=== PATIENT | female | born 1945 | race Caucasian/White ===

== ENCOUNTER → 2016-10-19 | Outpatient (CLI) | payer OTHER, MEDICAID ==
[2012-10-05 11:26] VITALS: BP 132/79
== END ==
LOC: LAB 09:23
PROVIDERS: ATTEND Internal Medicine Gastroenterology
DX: K64.0 First degree hemorrhoids (principal)
CPT/HCPCS: 82270

== ENCOUNTER 2017-01-09 20:50 | Emergency (ER) | payer OTHER, MEDICAID ==
[2017-01-09 20:57] VITALS: BP 182/89
--- NOTE | 2017-01-09 21:59 | RAD ---
Left foot three views Indication: Left foot pain and trauma. Lateral foot pain. Findings: There is fracture the base of the 5th toe metatarsal, minimally displaced. Remaining bones the foot appear intact, with great toe MTP degenerative change and bunion deformity. 2nd toe MTP DJD noted with flattening of the 2nd toe metatarsal head. History of osteonecrosis here may be possible. Prominent height 3 navicular bone noted. Impression: Acute fracture of the 5th metatarsal base. Reported By:
--- NOTE | 2017-01-09 22:00 | DR.GENAD ---
HPI - PCP Primary Care Physician: AUGUSTINA - HPI Comment HPI Comment: HISTORY BELOW. - Complaint/Symptoms Chief Complaint Doctors Comments: FELL AT HOME AND INJURED HER FOOT. PAIN RIGHT ANKLE, EVEN SAW BRUISES ON LATERAL FOOT. REDNESS LEFT LEG IS INCREASING. CURRENTLY ON ANTIBIOTIC. Chief Complaint:: FELL AT HOME HURT FOOT - Nurses notes reviewed Nurses Notes Review: Yes - Source History Provided: Patient - Mode of Arrival Mode of Arrival: Ambulatory - Timing Onset of Chief Complaint: 01/09/17 Came on: Gradually - Duration Duration: Constant Duration: Days PMH - PMH Past Medical History: Yes Past Medical History: Hypertension Past Surgical History: Yes Surgical History: Appendectomy, Hysterectomy - Family History History of Family Medical Conditions: Yes Family Medical History: Hypertension - Social History Does patient currently use any type of tobacco product: No Have you used tobacco products in the last 12 months: No Type of Tobacco Use: None Does any household member use tobacco: No Alcohol Use: None Do you use any recreational Drugs:: No Lives With: Alone Lives Where: Home - infectious screening In the last 2 months have you had wt loss of >10#?: NO Have you had fever, night sweats or hemotysis?: No Have you traveled outside the country in the last 6 months?: No Isolation: Standard ROS - Review of Systems Constitutional: Weakness, Fatigue. negative: Diaphoresis, Fever Eyes: No Symptoms Reported. negative: Eye Pain, Discharge ENTM: No Symptoms Reported. negative: Ear Pain, Nose Discharge, Nose Congestion , Throat Pain Respiratoy: Non-Productive Cough, Short of Breath. negative: Productive Cough, Wheezing, Hemoptysis Cardiovascular: Edema Gastrointestinal/Abdominal: No Symptoms Reported Genitourinary: No Symptoms Reported. negative: Dysuria, Frequency, Hematuria Neurological: No Symptoms Reported Musculoskeletal: Left, Ankle, Foot Integumentary: Change in Color, Bruises Hematologic/Lymphatic: Easy Bleeding, Easy Bruising Endocrine: No Symptoms Reported All Other Systems: Reviewed and Negative PE - Vital Signs Vitals: Temperature 98.6 F Pulse Rate 98 Respiratory Rate 17 Blood Pressure 182/89 O2 Sat by Pulse Oximetry 84 - General Limitations: No Limitations General Appearance: Alert - Head Head Exam: Normal Inspection - Eyes Eye exam: Normal Appearance - ENT ENT Exam: Normal External Ear Exam External Ear Exam: Normal External Inspection TM/Canal Exam: Bilateral Normal Nose Exam: Normal Nose Exam Mouth Exam: Normal Inspection Throat Exam: Normal Inspection - Neck Neck Exam: Trachea Midline - Chest Chest Inspection: Symmetric Chest Wall Rise - Respiratory Respiratory Exam: Respiratory Distress Respiratory Exam: Bilateral Clear to Auscultation, Bilateral Wheezing - Cardiovascular Cardiovascular Exam: Regular Rate, Normal Rhythm, Normal Heart Sounds - Abdominal Exam Abdominal Exam: Normal Bowel Sounds, Soft. negative: Tenderness - Extremities Extremities Exam: Tenderness (LEFT LEG, ANKLE AND FOOT WITH REDNESS) - Back Back Exam: Normal Inspection - Neurologic Neurological Exam: Alert, Oriented X3 - Psychiatric Psychiatric Exam: Normal Affect, Normal Mood - Skin Skin Exam: Erythema MDM - Differential Diagnosis Differential Diagnosis: CELLULITIS, FRACTURE, SPRAIN Course - Treatment Treatment: OCL SPLINT PLACE IN ED. - Education/Counseling Education/Counseling: Patient, Education Educated On: Treatment, Diagnosis, Needs for Follow Up ROR - Labs Reviewed Laboratory Results Reviewed?: Yes - XRAY XRAY Interpreted by: Radiologist XRAY Findings: REPORT DISCUSS WITH PATIENT. - Diagnosis Discharge Problem: Fracture of ankle, right, closed Qualifiers: Encounter type: initial encounter Qualified Code(s): S82.891A - Other fracture of right lower leg, initial encounter for closed fracture - Discharge Plan Disposition: HOME, SELF-CARE Condition: Stable Prescriptions: Hydrocodone-Acet 5 mg/325 mg [[place] 5/325 mg Tab] 1 tab PO Q8H PRN #12 tab PRN Reason: - Follow ups/Referrals Follow ups/Referrals: BONNY JACKMAN [Primary Care Provider] - 3 days JUANITO GARCIA [STAFF PHYSICIAN] - 01/10/17 - Instructions Instructions: Metacarpal Fracture, [id number] Additional Instructions: RETURN TO ED IF WORSE.
--- NOTE | 2017-01-10 08:17 | DR.GENAD ---
HPI - PCP Primary Care Physician: AUGUSTINA - HPI Comment HPI Comment: HAVING PROBLEM BEARING WEIGHT. - Complaint/Symptoms Chief Complaint Doctors Comments: FELL AT HOME AND INJURED LEFT FOOT. BRUISING LATERAL ASPECT OF LEFFT FOOT. Chief Complaint:: FELL AT HOME HURT FOOT - Nurses notes reviewed Nurses Notes Review: Yes - Source History Provided: Patient - Mode of Arrival Mode of Arrival: Ambulatory - Timing Onset of Chief Complaint: 01/09/17 Came on: Gradually - Duration Duration: Constant Duration: Days - Severity Severity: Moderate PMH - PMH Past Medical History: Yes Past Medical History: Hypertension Past Surgical History: Yes Surgical History: Appendectomy, Hysterectomy - Family History History of Family Medical Conditions: Yes Family Medical History: Hypertension - Social History Does patient currently use any type of tobacco product: No Have you used tobacco products in the last 12 months: No Type of Tobacco Use: None Does any household member use tobacco: No Alcohol Use: None Do you use any recreational Drugs:: No Lives With: Alone Lives Where: Home - infectious screening In the last 2 months have you had wt loss of >10#?: NO Have you had fever, night sweats or hemotysis?: No Have you traveled outside the country in the last 6 months?: No Isolation: Standard ROS - Review of Systems Constitutional: No Symptoms Reported Eyes: No Symptoms Reported ENTM: No Symptoms Reported Respiratoy: No Symptoms Reported Cardiovascular: No Symptoms Reported Gastrointestinal/Abdominal: No Symptoms Reported Genitourinary: No Symptoms Reported Neurological: No Symptoms Reported Musculoskeletal: Left, Foot Integumentary: No Symptoms Reported Hematologic/Lymphatic: No Symptoms Reported Endocrine: No Symptoms Reported All Other Systems: Reviewed and Negative PE - Vital Signs Vitals: Temperature 98.6 F Pulse Rate 98 Respiratory Rate 17 Blood Pressure 182/89 O2 Sat by Pulse Oximetry 84 - General Limitations: No Limitations General Appearance: Alert - Head Head Exam: Normal Inspection - Eyes Eye exam: Normal Appearance - ENT ENT Exam: Normal External Ear Exam External Ear Exam: Normal External Inspection TM/Canal Exam: Bilateral Normal Nose Exam: Normal Nose Exam Mouth Exam: Normal Inspection Throat Exam: Normal Inspection - Neck Neck Exam: Normal Inspection - Chest Chest Inspection: Symmetric Chest Wall Rise - Respiratory Respiratory Exam: Normal Lung Sounds Bilat Respiratory Exam: Bilateral Clear to Auscultation - Cardiovascular Cardiovascular Exam: Regular Rate, Normal Rhythm, Normal Heart Sounds - Abdominal Exam Abdominal Exam: Normal Inspection - Extremities Extremities Exam: Tenderness (SWELLING AND TENDERNESS LT FOOT.) - Neurologic Neurological Exam: Alert, Oriented X3 - Psychiatric Psychiatric Exam: Normal Affect, Normal Mood - Skin Skin Exam: Erythema MDM - Additional Information Additional Information Obtained From: Family - Differential Diagnosis Differential Diagnosis: CONTUSION, SPRAIN, FRACTURE LT FOOT. Course - Treatment Treatment: SEE ORDERS. SPLINT APPLIED IN ED. - Education/Counseling Education/Counseling: Patient, Family, Education Educated On: Diagnosis, Needs for Follow Up ROR - XRAY XRAY Interpreted by: Radiologist XRAY Findings: DISCUSS REPORT WITH PATIENT. - Diagnosis Discharge Problem: Cellulitis Fracture of ankle, right, closed Qualifiers: Encounter type: initial encounter Qualified Code(s): S82.891A - Other fracture of right lower leg, initial encounter for closed fracture - Discharge Plan Disposition: 01 HOME, SELF-CARE Condition: Stable Prescriptions: Hydrocodone-Acet 5 mg/325 mg [[place] 5/325 mg Tab] 1 tab PO Q8H PRN #12 tab PRN Reason: - Follow ups/Referrals Follow ups/Referrals: JUANITO GARCIA [STAFF PHYSICIAN] - 01/10/17 BONNY JACKMAN [Primary Care Provider] - 3 days - Instructions Instructions: Metacarpal Fracture, [id number] Additional Instructions: RETURN TO ED IF WORSE.
== END 2017-01-09 22:35 | disposition home or self-care (01) ==
LOC: ER 21:08
DX: S82.891A Other fracture of right lower leg, initial encounter for closed fracture (principal); W19.XXXA Unspecified fall, initial encounter; Y92.009 Unspecified place in unspecified non-institutional (private) residence as the place of occurrence of the external cause
CPT/HCPCS: 29515; 73630; 99282

== ENCOUNTER → 2017-02-20 | Outpatient (CLI) | payer OTHER, MEDICAID ==
--- NOTE | 2017-02-23 13:10 | RAD ---
HISTORY: Fracture of the 5th metatarsal Study: Three views of the left foot Comparison: 01/09/2017 Findings: Images again demonstrate a transversely oriented fracture involving the base of the left 5th metatars al similar prior exam. No significant displacement is appreciated. Lucency remains at the fracture si te. Degenerative changes of the 1st metatarsophalangeal joint and tarsometatarsal joints are noted. IMPRESSION: 1. Fracture involving the left 5th metatarsal which demonstrates an appearance similar to prior exam . 2. Degenerative changes as noted above. Reported By:
== END | disposition home or self-care (01) | DRG 561 ==
LOC: RAD 15:23
PROVIDERS: ATTEND Orthopaedic Surgery
DX: S92.355D Nondisplaced fracture of fifth metatarsal bone, left foot, subsequent encounter for fracture with routine healing (principal); X58.XXXD Exposure to other specified factors, subsequent encounter
CPT/HCPCS: 73630

== ENCOUNTER → 2017-05-31 | Outpatient (CLI) | payer OTHER, MEDICAID ==
--- NOTE | 2017-06-01 09:23 | MG ---
HISTORY: SCREENING Comparison: Multiple priors dating back to February 21, 2008 FINDINGS: Bilateral CC and MLO projections of the right and left breast were obtained. Scattered fibroglandula r tissue is seen to be present without significant interval change. No suspicious architectural dist ortion, mass or clustered microcalcifications can be observed to suggest malignancy. No skin thicken ing or nipple retraction is appreciated. No pathological lymphadenopathy can be identified. Benign- appearing calcifications are noted within the right and left breast. IMPRESSION: NO RADIOGRAPHIC EVIDENCE OF MALIGNANCY. ACR CATEGORY 2 - benign findings. FOLLOW-UP EXAM 1 YEAR. Diagnostic CAD was utilized and reviewed. * 0 (ZERO) - ASSESSMENT INCOMPLETE; ADDITIONAL IMAGING IS NEEDED. * 1/ (ONE) - NEGATIVE. * 2/II (TWO) - BENIGN FINDINGS. * 3/III (THREE) - PROBABLY BENIGN FINDING; SHORT INTERVAL FOLLOW-UP SUGGESTED. * 4/IV (FOUR) - SUSPICIOUS ABNORMALITY; BIOPSY SHOULD BE CONSIDERED. * 5/V - HIGHLY SUSPICIOUS OF MALIGNANCY; BIOPSY SHOULD BE PERFORMED. A NEGATIVE X-RAY REPORT SHOULD NOT DELAY BIOPSY IF A DOMINANT OR CLINICALLY SUSPICIOUS MASS IS PRESENT; 4 TO 8 PERCENT OF CANCERS ARE NOT IDENTIFIED BY X-RAY. A NEGA TIVE REPORT MAY REINFORCE THE CLINICAL IMPRESSION. ADENOSIS AND DENSE BREASTS MAY OBSCURE AN UNDERLY ING NEOPLASM. Reported By:
== END ==
LOC: RAD 08:45
PROVIDERS: ATTEND Nurse Practitioner Women's Health
DX: Z12.31 Encounter for screening mammogram for malignant neoplasm of breast (principal)
CPT/HCPCS: 77067

== ENCOUNTER 2023-01-20 16:27 | Inpatient (IN) ==
[~2023-01-20 16:27] MED LIST: NS IRRIGATION* 500 ML IR ONE
[2023-01-20 16:44] VITALS: BMI 28.3
--- NOTE | 2023-01-20 18:23 | ED.ABDFE ---
HPI Time Seen Time Seen by Provider: 01/20/23 18:21 PCP Primary Care Physician: Becki Parker Complaint Doctors Chief Complaint Comments: INCREASED GAS AFTER COLONOSCOPY WITH ABDOMINAL PAIN, Chief Complaint:: Patient states she had a colonoscopy yesterday per Dr Castro. She states she was fine until around 1600 hrs yesterday and began having severe abdominal pain all quadrants. She denies passing any Flatulence and has tried calling her PCP and Dr Castro without contact Self Treatment fo Chief Complaint: Gas x COVID-19 Coronavirus risk:travel/contact w/high risk person: No Has patient experienced Coronavirus symptoms: No Source History Provided: Patient Mode of arrival Mode of Arrival: Ambulatory Timing Onset of Chief Complaint: 01/19/23 PMH PMH Past Medical History: Yes Past Medical History: Hypertension Past Medical History Comment: diverticulitis Past Surgical History: Yes Surgical History: Appendectomy and Hysterectomy Family History History of Family Medical Conditions: Yes Family Medical History: Hypertension Social History Does patient currently use any type of tobacco product: No Have you used tobacco products in the last 12 months: No Type of Tobacco Use: None Does any household member use tobacco: No Alcohol Use: None Do you use any recreational Drugs:: No Lives With: Alone Lives Where: Home Travel Risk Coronavirus risk:travel/contact w/high risk person: No Has patient experienced Coronavirus symptoms: No Infectious screening In the last 2 months have you had wt loss of >10#?: NO Have you had fever, night sweats or hemotysis?: No Have you traveled outside the country in the last 6 months?: No Isolation: Standard ROS Review of Systems Constitutional: Other (ABDOMINAL PAIN) Eyes: No Symptoms Reported ENTM: No Symptoms Reported Respiratoy: No Symptoms Reported Cardiovascular: No Symptoms Reported Gastrointestinal/Abdominal: Abdominal Pain and Nausea Genitourinary: No Symptoms Reported Neurological: No Symptoms Reported Musculoskeletal: No Symptoms Reported Integumentary: No Symptoms Reported Hematologic/Lymphatic: No Symptoms Reported Endocrine: No Symptoms Reported Psychiatric: No Symptoms Reported PE Vital Signs Vitals: Vital Signs Temperature 98.8 F Pulse Rate [Left Radial] 84 Respiratory Rate 18 Respiratory Rate 20 Blood Pressure [Left Arm] 125/89 O2 Sat by Pulse Oximetry 95 General Limitations: Physical Limitation (MINIMAL AMBULATION DUE TO ABDOMINAL PAIN) General Appearance: In Distress (MODERATE DISTRESS) Head Head Exam: Normal Inspection, Atraumatic and Normocephalic Eyes Eye exam: Normal Appearance and EOMI ENT ENT Exam: Normal Exam, Normal Oropharynx and Normal External Ear Exam Neck Neck Exam: Normal Inspection, Full ROM and Trachea Midline Chest Chest Inspection: Normal Inspection and Symmetric Chest Wall Rise Respiratory Respiratory Exam: Normal Lung Sounds Bilat Cardiovascular Cardiovascular Exam: Regular Rate and Normal Rhythm Abdominal Exam Abdominal Exam: Normal Bowel Sounds and Tenderness Abdominal Tenderness: RUQ Rectal Rectal Exam: Deferred Back Back Exam: Normal Inspection Extremeties Extremities Exam: Normal Inspection External Exam: Female: Deferred Neurologic Neurological Exam: Alert, Oriented X3 and CN II-XII Intact Psychiatric Psychiatric Exam: Depressed and Agitated Skin Skin Exam: Warm, Dry and Intact MDM Differential Diagnosis Differential Diagnosis- Considerations may include:: Appendicitis, Diverticular disease, Urinary tract infection and Other (comments) (INTESTINAL PERFORATION) COURSE Treatment Treatment: PATIENT CONTINUED TO HAVE ABDOMINAL PAIN IN ER . WAS GIVEN GI COCKTAIL AND GOT LABS AND CT OF ABDOMEN /PELVIS ANS WAS F[place] TO [place] PERFORATION OF INTESTINE AT THE CECUM AND ASCENDING COLON. PATIENT AND PATIENT'S FAMILY WAS NOTIFIED OF THE PERFORATION AND WE CALLED DR CONTRERAS TO CONSULT ON THE PTIENT, HE STATED THAT HE WOULD ACCPT THE PATIENT BUT TRY TO GET IN TOUCH WITH DR CASTRO TO SEE WHAT HE WANTED TO DO. COULD NOT GET IN TOUCH WITH DR CASTRO SO DR CONTRERAS ADMITED THE PATIENT TO HIS SERVICE. PATIENT WAS MADE NPO AND FIRST DOSE OF ZOSYN 3.375 GRAMS WERE GIVEN IN ER. ROR Labs Reviewed Laboratory Results Reviewed?: Yes 01/20/23 21:56 01/20/23 21:56 Laboratory: WBC 12.9 X10^3/uL (3.6-10.0) H 01/20/23 21:56 RBC 4.99 X10^6/uL (3.5-5.4) 01/20/23 21:56 Hgb 14.9 g/dL (12.0-16.0) 01/20/23 21:56 Hct 42.8 % (36.0-47.0) 01/20/23 21:56 MCV 85.7 fL (80.0-100.0) 01/20/23 21:56 MCH 29.7 pg (27.0-34.0) 01/20/23 21:56 MCHC 34.7 g/dL (33.0-35.0) 01/20/23 21:56 RDW 14.1 % (11.6-16.5) 01/20/23 21:56 Plt Count 182 X10^3/uL (150.0-450.0) 01/20/23 21:56 Plt Count Comment Adequate (ADEQUATE) 01/20/23 21:56 MPV 8.4 fL (7.4-11.0) 01/20/23 21:56 Neut % (Auto) 87.5 % (42.0-75.0) H 01/20/23 21:56 Lymph % (Auto) 8.6 % (21.0-51.0) L 01/20/23 21:56 Wallace % (Auto) 3.8 % (0.0-13.0) 01/20/23 21:56 Eos % (Auto) 0.0 % (0.9-2.9) L 01/20/23 21:56 Baso % (Auto) 0.1 % (0.2-1.0) L 01/20/23 21:56 Neut # (Auto) 11.3 x10^3/uL (2.2-4.8) H 01/20/23 21:56 Lymph # (Auto) 1.1 X10^3/uL (1.3-2.9) L 01/20/23 21:56 Wallace # (Auto) 0.5 x10^3/uL (0.3-0.8) 01/20/23 21:56 Eos # (Auto) 0.0 x10^3/uL (0.0-0.2) 01/20/23 21:56 Baso # (Auto) 0.0 X10^3/uL (0.0-0.1) 01/20/23 21:56 Absolute Nucleated RBC 0.1 /100WBC 01/20/23 21:56 Plt Morphology Comment Normal (NORMAL) 01/20/23 21:56 RBC Morphology Normal (NORMAL) 01/20/23 21:56 Sodium 135 mmol/L (136-145) L 01/20/23 21:56 Corrected Sodium 136 mmol/L (136-145) 01/20/23 21:56 Potassium 3.3 mmol/L (3.5-5.1) L 01/20/23 21:56 Chloride 99 mmol/L (98-107) 01/20/23 21:56 Carbon Dioxide 24.7 mmol/L (21-32) 01/20/23 21:56 BUN 15 mg/dL (7-18) 01/20/23 21:56 Creatinine 1.06 mg/dL (0.55-1.02) H 01/20/23 21:56 Est GFR (MDRD) Af Amer > 60 (>60) 01/20/23 21:56 Est GFR (MDRD) Non-Af 53 (>60) L 01/20/23 21:56 Glucose 155 mg/dL (65-99) H 01/20/23 21:56 Calcium 9.0 mg/dL (8.5-10.1) 01/20/23 21:56 Corrected Calcium TNP 01/20/23 21:56 Magnesium 1.6 mg/dL (2.0-2.9) L 01/20/23 21:56 Total Bilirubin 1.00 mg/dL (0.2-1.0) 01/20/23 21:56 AST 13 Units/L (15-37) L 01/20/23 21:56 ALT 20 Units/L (12-78) 01/20/23 21:56 Alkaline Phosphatase 83 Units/L (46-116) 01/20/23 21:56 Total Protein 7.2 g/dL (6.4-8.2) 01/20/23 21:56 Albumin 3.4 g/dL (3.4-5.0) 01/20/23 21:56 Globulin 3.8 g/dL (2.5-4.5) 01/20/23 21:56 Albumin/Globulin Ratio 0.9 Ratio (1.1-2.1) L 01/20/23 21:56 Amylase 37 Units/L (25-115) 01/20/23 21:56 Lipase 76 Units/L (73-393) 01/20/23 21:56 Opioid Opioid Risk Tool Age (Duarte box if 16-45): No History of Preadolescent Sexual Abuse: No Total: 0 Total Score Risk Category: Low Risk Copyright: Long TESFAYE predicting aberrant behaviors Discharge Plan Diagnosis Discharge Problem: Perforated bowel Discharge Plan Patient Disposition: ADMITTED INPATIENT Condition: Stable
[2023-01-20] MEDS ORDERED: XYLOCAINE VISCOUS MT ONE (18:57)
[2023-01-20] MEDS ORDERED: MAALOX or MYLANTA PO ONE (18:58)
[2023-01-20] MEDS ORDERED: BENADRYL ELIXIR 12.5 MG/5 ML PO ONE (18:59)
[2023-01-20] MEDS ORDERED: XYLOCAINE VISCOUS ONE (19:04)
[2023-01-20] MEDS ORDERED: MAALOX or MYLANTA ONE (19:05)
[2023-01-20] MEDS ORDERED: BENADRYL ELIXIR 12.5 MG/5 ML ONE (19:05)
[2023-01-20] MEDS ORDERED: ULTRAM PO ONE (19:37)
[2023-01-20] MEDS ORDERED: ULTRAM ONE (19:38)
--- NOTE | 2023-01-20 20:39 | CT ---
EXAM:ABDOMEN/PELVIS W/O CONHISTORY:PAIN AFTER COLONOSCOPYCOMPARISON:None.TECHNIQUE:Non -contrasted axial CT images of the abdomen and pelvis were obtained and reformatted into coronal and sagittal planes for further evaluation.Radiation dose: 254.09 mGy-cm total DLPFINDINGS:Lung bases are clear.Stomach appears normal.Solid visceral organs of the upper abdomen are unremarkable.Gallbladder appears normal.No intra or extrahepatic biliary dilatation.Unremarkable appearance of the kidneys.No hydronephrosis, hydroureter or ureteral calculus.Unremarkable appearance of the urinary bladder.Pneumoperitoneum in the nondependent portion of the upper abdomen.Gas adjacent to the margins of the cecum/ascending colon.Colonic diverticulosis without diverticulitis.Otherwise, unremarkable appearance of the small and large bowel.Status post hysterectomy.No evidence of acute appendicitis.No significant fluid collection.No adenopathy.No acute osseous abnormality.Moderate multilevel degenerative disc and joint changes.IMPRESSION:Findings are consistent with colonic perforation which may have occurred in the cecum/ascending colon; likely related to the patient's recent colonoscopy. Colonic diverticulosis without diverticulitis. Otherwise, unremarkable exam.THIS IS AN ELECTRONICALLY VERIFIED FINAL REPORT01/20/2023 8:35 PM - Electronically signed by Ric Mcnally MD
[2023-01-20 22:12] LABS: PLATELET COUNT 182 X10^3/uL (150.0-450.0)
[2023-01-20 22:19] LABS: ALANINE AMINOTRANSFERASE 20 Units/L (12-78); ALBUMIN 3.4 g/dL (3.4-5.0); ALKALINE PHOSPHATASE 83 Units/L (46-116); AMYLASE 37 Units/L (25-115); ASPARTATE AMINO TRANSFERASE 13 Units/L (15-37); BLOOD UREA NITROGEN 15 mg/dL (7-18); CARBON DIOXIDE 24.7 mmol/L (21-32); CHLORIDE 99 mmol/L (98-107); COR NA(FOR HYPERGLY) 136 mmol/L (136-145); CREATININE 1.06 mg/dL (0.55-1.02); GLUCOSE 155 mg/dL (65-99); LIPASE 76 Units/L (73-393); POTASSIUM 3.3 mmol/L (3.5-5.1); SODIUM 135 mmol/L (136-145); TOTAL PROTEIN 7.2 g/dL (6.4-8.2); eGFR NON BLACK RACES 53 (>60)
[2023-01-20 22:24] LABS: BASOPHILS % (AUTO) 0.1 % (0.2-1.0); HEMATOCRIT 42.8 % (36.0-47.0); HEMOGLOBIN 14.9 g/dL (12.0-16.0); LYMPHOCYTES # (AUTO) 1.1 X10^3/uL (1.3-2.9); LYMPHOCYTES % (AUTO) 8.6 % (21.0-51.0); MEAN CORPUSCULAR HEMOGLOBIN 29.7 pg (27.0-34.0); MEAN CORPUSCULAR HGB CONC 34.7 g/dL (33.0-35.0); MEAN CORPUSCULAR VOLUME 85.7 fL (80.0-100.0); MEAN PLATELET VOLUME 8.4 fL (7.4-11.0); MONOCYTES # (AUTO) 0.5 x10^3/uL (0.3-0.8); MONOCYTES % (AUTO) 3.8 % (0.0-13.0); NEUTROPHILS # (AUTO) 11.3 x10^3/uL (2.2-4.8); NEUTROPHILS % (AUTO) 87.5 % (42.0-75.0); RED BLOOD COUNT 4.99 X10^6/uL (3.5-5.4); RED CELL DISTRIBUTION WIDTH 14.1 % (11.6-16.5); WHITE BLOOD COUNT 12.9 X10^3/uL (3.6-10.0)
[2023-01-20 22:27] LABS: PLATELET MORPHOLOGY COMMENT NORMAL (NORMAL)
[2023-01-20] MEDS ORDERED: NS 100 ML IV 100 ML ONE (22:43)
[2023-01-20] MEDS ORDERED: ZOSYN VIAL 3.375 GRAMS IV ONE (22:43)
[2023-01-20] MEDS: ZOSYN VIAL 3.375 GRAMS 3.375 G in NS 100 ML IV 100 ML IV SCH ×3 (22:57→23:40)
[2023-01-20] MEDS ORDERED: [UNRECOGNIZED DRUG - OTHER] ONE (23:32)
[2023-01-20] MEDS ORDERED: ZOFRAN INJ 4 MG VIAL IVP PRN (23:32)
[2023-01-20] MEDS ORDERED: ZOSYN VIAL 3.375 GRAMS 3.375 G in NS 100 ML IV 100 ML IV ONE (23:39)
--- NOTE | 2023-01-20 23:40 | EKG ---
Test Reason : PERFORATED BOWEL Blood Pressure : */* mmHG Vent. Rate : 79 BPM Atrial Rate : 79 BPM P-R Int : 172 ms QRS Dur : 78 ms QT Int : 368 ms P-R-T Axes : -4 -14 -19 degrees QTc Int : 421 ms Normal sinus rhythm Inferior infarct , age undetermined Anterior infarct , age undetermined Abnormal ECG No previous ECGs available Confirmed by Je Ceballos ([id number]) on 01/21/2023 9:57:53 AM Referred By: Confirmed By: Je Ceballos
--- NOTE | 2023-01-20 23:55 | RAD ---
EXAM:CHEST, 1 VIEWHISTORY:PERFORATED BOWELCOMPARISON:No relevant prior studies available.TECHNIQUE:Chest radiographic imaging, AP portable projection, 1 imageFINDINGS:No cardiomegaly.No focal airspace disease.No pleural effusion.No pneumothorax.No acute osseous abnormality.IMPRESSION:No imaging findings of acute cardiopulmonary disease.THIS IS AN ELECTRONICALLY VERIFIED FINAL REPORT01/20/2023 11:52 PM - Electronically signed by Ric Mcnally MD
[2023-01-21] MEDS ORDERED: PROTONIX INJ 40 MG VIAL ONE (00:19)
[2023-01-21] MEDS: PROTONIX INJ 40 MG VIAL IVP SCH ×2 (00:23→09:37)
[2023-01-21] MEDS: DILAUDID INJ IVP PRN ×3 (00:42→19:36)
[2023-01-21] MEDS: D5 1/2 NS 1,000 ML 1,000 ML IV SCH ×2 (01:03→02:49)
[2023-01-21] MEDS ORDERED: CONSULT PHARMACY - POTASSIUM & MAGNESIUM XX SCH ×2 (02:00→06:00)
[2023-01-21] MEDS: K-DUR TAB 20 MEQ PO SCH (03:02)
[2023-01-21] MEDS: ZOSYN VIAL 3.375 GRAMS 3.375 G in NS 100 ML IV 100 ML IV SCH ×3 (05:42→21:10)
[2023-01-21 05:44] LABS: ALANINE AMINOTRANSFERASE 16 Units/L (12-78); ALBUMIN 3.1 g/dL (3.4-5.0); ALKALINE PHOSPHATASE 76 Units/L (46-116); ASPARTATE AMINO TRANSFERASE 15 Units/L (15-37); BLOOD UREA NITROGEN 16 mg/dL (7-18); CALCIUM 8.5 mg/dL (8.5-10.1); CARBON DIOXIDE 28.9 mmol/L (21-32); CHLORIDE 100 mmol/L (98-107); COR CA(FOR HYPOALB) 9.2 mg/dL (8.5-10.1); COR NA(FOR HYPERGLY) 139 mmol/L (136-145); CREATININE 0.98 mg/dL (0.55-1.02); GLUCOSE 139 mg/dL (65-99); POTASSIUM 3.3 mmol/L (3.5-5.1); SODIUM 138 mmol/L (136-145); TOTAL PROTEIN 6.8 g/dL (6.4-8.2); eGFR NON BLACK RACES 58 (>60)
[2023-01-21 05:52] LABS: BASOPHILS % (AUTO) 0.2 % (0.2-1.0); HEMATOCRIT 42.2 % (36.0-47.0); HEMOGLOBIN 14.6 g/dL (12.0-16.0); LYMPHOCYTES # (AUTO) 1.4 X10^3/uL (1.3-2.9); LYMPHOCYTES % (AUTO) 14.5 % (21.0-51.0); MEAN CORPUSCULAR HEMOGLOBIN 29.9 pg (27.0-34.0); MEAN CORPUSCULAR HGB CONC 34.6 g/dL (33.0-35.0); MEAN CORPUSCULAR VOLUME 86.2 fL (80.0-100.0); MEAN PLATELET VOLUME 8.9 fL (7.4-11.0); MONOCYTES # (AUTO) 0.3 x10^3/uL (0.3-0.8); MONOCYTES % (AUTO) 2.9 % (0.0-13.0); NEUTROPHILS % (AUTO) 82.4 % (42.0-75.0); PLATELET COUNT 171 X10^3/uL (150.0-450.0); RED BLOOD COUNT 4.89 X10^6/uL (3.5-5.4); RED CELL DISTRIBUTION WIDTH 14.2 % (11.6-16.5); WHITE BLOOD COUNT 9.7 X10^3/uL (3.6-10.0)
[2023-01-21] MEDS: D5 1/2 NS + KCL 20 MEQ/L 1,000 ML with MAGNESIUM SULFATE 50% INJ VIAL 1 G IV SCH ×6 (09:36→23:44)
--- NOTE | 2023-01-21 10:39 | RAD ---
EXAM:KUBHISTORY:perforated bowel after scope of the colon severals priorCOMPARISON:CT dated 01/20/2023FINDINGS:Evaluation of the abdomen demonstrates a nonspecific but nonobstructive bowel gas pattern with air-filled loops of small bowel within the central abdomen and distal colonic gas noted to be present. Within the central abdomen the transverse colon on supine imaging demonstrates Rigler sign to suggest persistent free intraperitoneal air as seen on CT dated 01/20/2023. No pathological soft tissue mass or calcification can be observed. The bony structures are grossly intact.IMPRESSION:Air-filled loops of colon are noted with regular sign again observed on supine imaging of the abdomen to suggest persistent free air within the abdomen.THIS IS AN ELECTRONICALLY VERIFIED FINAL REPORT01/21/2023 10:36 AM - Electronically signed by Neeraj Henley MD
[2023-01-21 15:10] LABS: BILIRUBIN,URINE NEGATIVE (NEGATIVE); BLOOD/HEMOGLOBIN,URINE 2+ (NEGATIVE); GLUCOSE, URINE NEGATIVE (NEGATIVE); KETONES,URINE NEGATIVE (NEGATIVE); LEUKOCYTE ESTERASE ,URINE NEGATIVE (NEGATIVE); NITRITES,URINE NEGATIVE (NEGATIVE); PROTEIN,URINE 2+ (NEGATIVE); UROBILINOGEN,URINE NORMAL (NORMAL)
[2023-01-21 15:21] LABS: APPEARANCE,URINE CLEAR (CLEAR); BACTERIA,URINE 1+ /HPF (NEGATIVE); COLOR,URINE YELLOW (YELLOW); RBC,URINE 0-2 /HPF (0-3); SQUAMOUS EPITHELIAL CELL,UR RARE /HPF (NEGATIVE)
[2023-01-21 16:56] LABS: HEMOGLOBIN 15.1 g/dL (12.0-16.0); MEAN CORPUSCULAR VOLUME 86.4 fL (80.0-100.0); MONOCYTES # (AUTO) 0.3 x10^3/uL (0.3-0.8)
[2023-01-21 17:01] LABS: BASOPHILS % (AUTO) 0.2 % (0.2-1.0); EOSINOPHILS % (AUTO) 0.1 % (0.9-2.9); HEMATOCRIT 44.3 % (36.0-47.0); LYMPHOCYTES # (AUTO) 0.9 X10^3/uL (1.3-2.9); LYMPHOCYTES % (AUTO) 10.3 % (21.0-51.0); MEAN CORPUSCULAR HEMOGLOBIN 29.5 pg (27.0-34.0); MEAN CORPUSCULAR HGB CONC 34.1 g/dL (33.0-35.0); MEAN PLATELET VOLUME 8.2 fL (7.4-11.0); MONOCYTES % (AUTO) 3.4 % (0.0-13.0); NEUTROPHILS # (AUTO) 7.1 x10^3/uL (2.2-4.8); PLATELET COUNT 178 X10^3/uL (150.0-450.0); RED BLOOD COUNT 5.13 X10^6/uL (3.5-5.4); RED CELL DISTRIBUTION WIDTH 14.3 % (11.6-16.5); WHITE BLOOD COUNT 8.3 X10^3/uL (3.6-10.0)
[2023-01-22] MEDS: D5 1/2 NS + KCL 20 MEQ/L 1,000 ML with MAGNESIUM SULFATE 50% INJ VIAL 1 G IV SCH ×2 (03:09)
[2023-01-22] MEDS: DILAUDID INJ IVP PRN ×6 (04:53→21:16)
[2023-01-22] MEDS: ZOSYN VIAL 3.375 GRAMS 3.375 G in NS 100 ML IV 100 ML IV SCH ×4 (05:34→21:15)
[2023-01-22 05:57] LABS: ALANINE AMINOTRANSFERASE 14 Units/L (12-78); ALBUMIN 2.4 g/dL (3.4-5.0); ALKALINE PHOSPHATASE 76 Units/L (46-116); ASPARTATE AMINO TRANSFERASE 10 Units/L (15-37); BLOOD UREA NITROGEN 15 mg/dL (7-18); CALCIUM 8.2 mg/dL (8.5-10.1); CARBON DIOXIDE 26.3 mmol/L (21-32); CHLORIDE 102 mmol/L (98-107); COR CA(FOR HYPOALB) 9.5 mg/dL (8.5-10.1); COR NA(FOR HYPERGLY) 136 mmol/L (136-145); CREATININE 0.88 mg/dL (0.55-1.02); GLUCOSE 133 mg/dL (65-99); MAGNESIUM 2.2 mg/dL (2.0-2.9); POTASSIUM 3.8 mmol/L (3.5-5.1); SODIUM 135 mmol/L (136-145); TOTAL PROTEIN 6.2 g/dL (6.4-8.2); eGFR NON BLACK RACES > 60 (>60)
[2023-01-22 06:07] LABS: BASOPHILS % (AUTO) 0.2 % (0.2-1.0); EOSINOPHILS % (AUTO) 0.3 % (0.9-2.9); HEMATOCRIT 40.5 % (36.0-47.0); HEMOGLOBIN 13.9 g/dL (12.0-16.0); LYMPHOCYTES # (AUTO) 0.9 X10^3/uL (1.3-2.9); LYMPHOCYTES % (AUTO) 12.6 % (21.0-51.0); MEAN CORPUSCULAR HEMOGLOBIN 29.4 pg (27.0-34.0); MEAN CORPUSCULAR HGB CONC 34.4 g/dL (33.0-35.0); MEAN CORPUSCULAR VOLUME 85.5 fL (80.0-100.0); MEAN PLATELET VOLUME 7.7 fL (7.4-11.0); MONOCYTES # (AUTO) 0.3 x10^3/uL (0.3-0.8); MONOCYTES % (AUTO) 3.5 % (0.0-13.0); NEUTROPHILS # (AUTO) 6.1 x10^3/uL (2.2-4.8); NEUTROPHILS % (AUTO) 83.4 % (42.0-75.0); PLATELET COUNT 177 X10^3/uL (150.0-450.0); RED BLOOD COUNT 4.74 X10^6/uL (3.5-5.4); RED CELL DISTRIBUTION WIDTH 14.6 % (11.6-16.5); WHITE BLOOD COUNT 7.4 X10^3/uL (3.6-10.0)
[2023-01-22] MEDS ORDERED: CONSULT PHARMACY - POTASSIUM & MAGNESIUM XX SCH (07:00)
--- NOTE | 2023-01-22 08:59 | RAD ---
HISTORYBowel perforationSTUDYKUBCOMPARISONSeptember 2022FINDINGSSupine views of abdomen demonstrate slight gaseous distention of the colon. Appearance does not suggest obstruction. There is no convincing pneumoperitoneum identified. No fluid or mass formation or pathologic calcification is noted.IMPRESSIONSlight nonspecific colon dilatation.Electronically signed by: DEBBIE OBRIEN (Jan 22, 2023 08:58:59)
[2023-01-22] MEDS ORDERED: K-DUR TAB 20 MEQ PO SCH (09:00)
--- NOTE | 2023-01-22 09:10 | EKG ---
Test Reason : pre operative Blood Pressure : */* mmHG Vent. Rate : 95 BPM Atrial Rate : 95 BPM P-R Int : 176 ms QRS Dur : 70 ms QT Int : 332 ms P-R-T Axes : 34 -6 23 degrees QTc Int : 417 ms Normal sinus rhythm Septal infarct (cited on or before 20-JAN-2023) Inferior infarct (cited on or before 20-JAN-2023) Abnormal ECG When compared with ECG of 20-JAN-2023 23:37, Nonspecific T wave abnormality no longer evident in Lateral leads Confirmed by Je Ceballos ([id number]) on 01/23/2023 8:00:52 AM Referred By: Confirmed By: Je Ceballos
[2023-01-22] MEDS: PROTONIX INJ 40 MG VIAL IVP SCH ×2 (09:27→21:16)
[2023-01-22] MEDS ORDERED: VERSED ONE (09:50)
[2023-01-22] MEDS ORDERED: POLYMYXIN B SULFATE ONE ×2 (10:01→12:49)
--- NOTE | 2023-01-22 10:43 | RAD ---
HISTORYPreopSTUDYPortable AP upright chestCOMPARISONSeptember 2022FINDINGSThe heart is upper normal in size with no definite pneumonia, pneumothorax or pleural fluid. Free air is noted under the right diaphragm.IMPRESSIONPneumoperitoneum. Similar findings were described on recent abdomen CT January 20, 2023.Electronically signed by: DEBBIE OBRIEN (Jan 22, 2023 10:41:42)
[2023-01-22] MEDS ORDERED: FENTANYL VIAL INJ 250 mcg ONE (10:49)
[2023-01-22] MEDS ORDERED: KETAMINE 50 MG/5 ML-NACL SYRNG ONE (10:50)
[2023-01-22] MEDS ORDERED: NS 100 ML IV 100 ML ONE (10:51)
[2023-01-22] MEDS ORDERED: DIPRIVAN VIAL 20 ML ONE (10:51)
[2023-01-22] MEDS ORDERED: NS 1,000 ML IV 1,000 ML ONE (10:51)
[2023-01-22] MEDS ORDERED: BRIDION ONE (10:51)
[2023-01-22] MEDS ORDERED: OFIRMEV IV 1000 MG VIAL 1,000 MG/100 ML VIAL IV ONE (10:51)
[2023-01-22] MEDS ORDERED: ZEMURON 100 MG VIAL ONE (10:51)
[2023-01-22] MEDS ORDERED: ZOFRAN INJ 4 MG VIAL ONE (10:51)
[2023-01-22] MEDS ORDERED: PEPCID 20 MG VIAL ONE (10:51)
[2023-01-22] MEDS ORDERED: PRECEDEX INJ VIAL IVP ONE (10:51)
[2023-01-22] MEDS ORDERED: XYLOCAINE 2 % (PLAIN) ONE (10:52)
[2023-01-22] MEDS ORDERED: ROBINUL ONE (10:55)
[2023-01-22] MEDS ORDERED: DECADRON INJ ONE (10:55)
[2023-01-22] MEDS ORDERED: ANCEF VIAL 1 GRAM ONE (10:58)
[2023-01-22] MEDS ORDERED: BARHEMSYS INJ ONE (11:03)
[2023-01-22] MEDS ORDERED: LACRI-LUBE S.O.P. ONE (11:23)
[2023-01-22] MEDS ORDERED: HESPAN IV IN NS 500 ML IV ONE (11:25)
[2023-01-22] MEDS ORDERED: ZOFRAN INJ 4 MG VIAL IVP PRN (13:34)
[2023-01-22] MEDS ORDERED: BENADRYL INJ 50 MG VIAL IVP PRN (13:34)
[2023-01-22] MEDS ORDERED: BARHEMSYS INJ IVP PRN (13:34)
[2023-01-22] MEDS ORDERED: DILAUDID INJ IVP PRN (13:37)
[2023-01-22] MEDS ORDERED: DILAUDID INJ ONE (13:58)
[2023-01-22] MEDS ORDERED: D5 1/2 NS 1,000 ML 1,000 ML IV SCH (14:00)
[2023-01-22] MEDS: D5 1/2 NS + KCL 20 MEQ/L 1,000 ML IV SCH ×2 (14:39→17:08)
[2023-01-22] MEDS: LEVAQUIN PREMIX IV 500 MG 500 MG/100 ML BAG IV SCH (14:59)
[2023-01-22] MEDS ORDERED: PROTONIX INJ 40 MG VIAL ONE (19:03)
[2023-01-23] MEDS: D5 1/2 NS + KCL 20 MEQ/L 1,000 ML IV SCH ×3 (03:47→20:16)
[2023-01-23] MEDS: DILAUDID INJ IVP PRN ×3 (03:48→20:06)
[2023-01-23 05:03] LABS: BASOPHILS % (AUTO) 0 % (0.2-1.0); LYMPHOCYTES # (AUTO) 0.5 X10^3/uL (1.3-2.9); LYMPHOCYTES % (AUTO) 5.9 % (21.0-51.0); MEAN CORPUSCULAR HEMOGLOBIN 29.6 pg (27.0-34.0); MEAN CORPUSCULAR HGB CONC 34.4 g/dL (33.0-35.0); MEAN CORPUSCULAR VOLUME 85.9 fL (80.0-100.0); MEAN PLATELET VOLUME 8.4 fL (7.4-11.0); MONOCYTES # (AUTO) 0.4 x10^3/uL (0.3-0.8); MONOCYTES % (AUTO) 5.2 % (0.0-13.0); NEUTROPHILS % (AUTO) 88.9 % (42.0-75.0); PLATELET COUNT 175 X10^3/uL (150.0-450.0); RED BLOOD COUNT 4.08 X10^6/uL (3.5-5.4); RED CELL DISTRIBUTION WIDTH 14.2 % (11.6-16.5); WHITE BLOOD COUNT 7.8 X10^3/uL (3.6-10.0)
[2023-01-23] MEDS: ZOSYN VIAL 3.375 GRAMS 3.375 G in NS 100 ML IV 100 ML IV SCH ×3 (05:06→21:04)
[2023-01-23 05:15] LABS: ALANINE AMINOTRANSFERASE 17 Units/L (12-78); ALBUMIN 1.7 g/dL (3.4-5.0); ALKALINE PHOSPHATASE 63 Units/L (46-116); ASPARTATE AMINO TRANSFERASE 12 Units/L (15-37); BLOOD UREA NITROGEN 13 mg/dL (7-18); CALCIUM 7.7 mg/dL (8.5-10.1); CARBON DIOXIDE 24.1 mmol/L (21-32); CHLORIDE 104 mmol/L (98-107); COR CA(FOR HYPOALB) 9.5 mg/dL (8.5-10.1); COR NA(FOR HYPERGLY) 137 mmol/L (136-145); CREATININE 0.77 mg/dL (0.55-1.02); GLUCOSE 155 mg/dL (65-99); POTASSIUM 4.2 mmol/L (3.5-5.1); SODIUM 136 mmol/L (136-145); eGFR NON BLACK RACES > 60 (>60)
[2023-01-23] MEDS: LEVAQUIN PREMIX IV 500 MG 500 MG/100 ML BAG IV SCH (09:18)
[2023-01-23] MEDS: PROTONIX INJ 40 MG VIAL IVP SCH ×2 (09:18→20:06)
[2023-01-23] MEDS: LOVENOX INJ 40 MG SYR SC SCH (09:18)
--- NOTE | 2023-01-23 16:52 | DR.PROGNOT ---
HOSPITAL PROGRESS NOTE Progress Note for Day of: Progress Note Date: 01/23/23 Chief Complaint Chief Complaint: PO Rt colectomy for perforated Cecum .day 1 . doing very well , OOB . minimal drainage in SHAMAR and NGT .. normal CBC and lytes . temp 98.7 Past Medical Family Social History Past Med/Fam/Surg Hx: No changes since H&P Allergies: Allergies clarithromycin [Biaxin] Allergy (Unknown, Verified 01/20/23 19:10) Reason: Drug allergy; Comments: Swelling of tongue codeine Allergy (Unknown, Verified 01/20/23 19:42) Hives; Itching; Rash Reason: Drug allergy Review Of Systems ROS: No change since H&P Vital Signs Vital Signs: Vital Signs Temperature 98.1 F Temperature 98.5 F Pulse Rate [Left Radial] 75 Pulse Rate [Left Radial] 75 Respiratory Rate 20 Respiratory Rate 20 Respiratory Rate 20 Respiratory Rate 20 Respiratory Rate 20 Blood Pressure [Left Arm] 171/79 Blood Pressure [Left Arm] 143/64 O2 Sat by Pulse Oximetry 98 O2 Sat by Pulse Oximetry 97 Physical Exam Oriented: Normal Eyes: Normal Respiratory: Normal Cardiovascular: Normal GI:Auscultation: Decreased GI:Palpation: Normal GI: Tenderness: Other (soft, flat abd with incisional tenderness .. ) Mood Description: Calm Speech Pattern: Clear and Appropriate Laboratory and Diagnostics 01/23/23 04:06 01/23/23 04:06 Labs: 01/21/23 19:41 Blood Blood Culture - Preliminary 01/21/23 19:33 Blood Blood Culture - Preliminary 01/22/23 11:39 Peritoneal Fluid Wound Gram Stain - Final 01/22/23 11:39 Peritoneal Fluid Wound Culture - Preliminary Laboratory WBC 7.8 X10^3/uL (3.6-10.0) 01/23/23 04:06 RBC 4.08 X10^6/uL (3.5-5.4) 01/23/23 04:06 Hgb 12.0 g/dL (12.0-16.0) 01/23/23 04:06 Hct 35.0 % (36.0-47.0) L 01/23/23 04:06 MCV 85.9 fL (80.0-100.0) 01/23/23 04:06 MCH 29.6 pg (27.0-34.0) 01/23/23 04:06 MCHC 34.4 g/dL (33.0-35.0) 01/23/23 04:06 RDW 14.2 % (11.6-16.5) 01/23/23 04:06 Plt Count 175 X10^3/uL (150.0-450.0) 01/23/23 04:06 Plt Count Comment Adequate (ADEQUATE) 01/20/23 21:56 MPV 8.4 fL (7.4-11.0) 01/23/23 04:06 Neut % (Auto) 88.9 % (42.0-75.0) H 01/23/23 04:06 Lymph % (Auto) 5.9 % (21.0-51.0) L 01/23/23 04:06 [place] % (Auto) 5.2 % (0.0-13.0) 01/23/23 04:06 Eos % (Auto) 0.0 % (0.9-2.9) L 01/23/23 04:06 Baso % (Auto) 0 % (0.2-1.0) L 01/23/23 04:06 Neut # (Auto) 7.0 x10^3/uL (2.2-4.8) H 01/23/23 04:06 Lymph # (Auto) 0.5 X10^3/uL (1.3-2.9) L 01/23/23 04:06 [place] # (Auto) 0.4 x10^3/uL (0.3-0.8) 01/23/23 04:06 Eos # (Auto) 0.0 x10^3/uL (0.0-0.2) 01/23/23 04:06 Baso # (Auto) 0.0 X10^3/uL (0.0-0.1) 01/23/23 04:06 Absolute Nucleated RBC 0.0 /100WBC 01/23/23 04:06 Plt Morphology Comment Normal (NORMAL) 01/20/23 21:56 RBC Morphology Normal (NORMAL) 01/20/23 21:56 Sodium 136 mmol/L (136-145) 01/23/23 04:06 Corrected Sodium 137 mmol/L (136-145) 01/23/23 04:06 Potassium 4.2 mmol/L (3.5-5.1) 01/23/23 04:06 Chloride 104 mmol/L (98-107) 01/23/23 04:06 Carbon Dioxide 24.1 mmol/L (21-32) 01/23/23 04:06 BUN 13 mg/dL (7-18) 01/23/23 04:06 Creatinine 0.77 mg/dL (0.55-1.02) 01/23/23 04:06 Est GFR (MDRD) Af Amer > 60 (>60) 01/23/23 04:06 Est GFR (MDRD) Non-Af > 60 (>60) 01/23/23 04:06 Glucose 155 mg/dL (65-99) H 01/23/23 04:06 Calcium 7.7 mg/dL (8.5-10.1) L 01/23/23 04:06 Corrected Calcium 9.5 mg/dL (8.5-10.1) 01/23/23 04:06 Magnesium 2.2 mg/dL (2.0-2.9) 01/22/23 05:11 Total Bilirubin 0.50 mg/dL (0.2-1.0) 01/23/23 04:06 AST 12 Units/L (15-37) L 01/23/23 04:06 ALT 17 Units/L (12-78) 01/23/23 04:06 Alkaline Phosphatase 63 Units/L (46-116) 01/23/23 04:06 Total Protein 5.0 g/dL (6.4-8.2) L 01/23/23 04:06 Albumin 1.7 g/dL (3.4-5.0) L 01/23/23 04:06 Globulin 3.3 g/dL (2.5-4.5) 01/23/23 04:06 Albumin/Globulin Ratio 0.5 Ratio (1.1-2.1) L 01/23/23 04:06 Amylase 37 Units/L (25-115) 01/20/23 21:56 Lipase 76 Units/L (73-393) 01/20/23 21:56 Specimen Type Catherized urine 01/21/23 14:45 Urine Color Yellow (YELLOW) 01/21/23 14:45 Urine Appearance Clear (CLEAR) 01/21/23 14:45 Urine pH 5.0 (5.0 - 8.0) 01/21/23 14:45 Ur Specific [place] 1.025 (1.000-1.030) 01/21/23 14:45 Urine Protein 2+ (NEGATIVE) 01/21/23 14:45 Urine Glucose (UA) Negative (NEGATIVE) 01/21/23 14:45 Urine Ketones Negative (NEGATIVE) 01/21/23 14:45 Urine Blood 2+ (NEGATIVE) 01/21/23 14:45 Urine Nitrite Negative (NEGATIVE) 01/21/23 14:45 Urine Bilirubin Negative (NEGATIVE) 01/21/23 14:45 Urine Urobilinogen Normal (NORMAL) 01/21/23 14:45 Ur Leukocyte Esterase Negative (NEGATIVE) 01/21/23 14:45 Urine RBC 0-2 /HPF (0-3) 01/21/23 14:45 Urine WBC 3-5 /HPF (0-5) 01/21/23 14:45 Ur Squamous Epith Cells Rare /HPF (NEGATIVE) 01/21/23 14:45 Amorphous Sediment Trace /HPF (NEGATIVE) 01/21/23 14:45 Urine Bacteria 1+ /HPF (NEGATIVE) 01/21/23 14:45 Urine Mucus Few /HPF (NEGATIVE) 01/21/23 14:45 Ur Culture Indicated? 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 Problem Patient Problems: Patient Problems (Updated 01/21/23 @ 02:48 by Ricky Henry) Perforated bowel (Acute) K63.1
[2023-01-24] MEDS: D5 1/2 NS + KCL 20 MEQ/L 1,000 ML IV SCH ×3 (01:11→19:14)
[2023-01-24] MEDS: DILAUDID INJ IVP PRN ×2 (04:12→20:06)
[2023-01-24] MEDS: ZOSYN VIAL 3.375 GRAMS 3.375 G in NS 100 ML IV 100 ML IV SCH ×3 (05:17→21:04)
[2023-01-24 06:35] LABS: BASOPHILS % (AUTO) 0.1 % (0.2-1.0); EOSINOPHILS % (AUTO) 0.6 % (0.9-2.9); HEMOGLOBIN 10.9 g/dL (12.0-16.0); LYMPHOCYTES # (AUTO) 0.9 X10^3/uL (1.3-2.9); LYMPHOCYTES % (AUTO) 11.8 % (21.0-51.0); MEAN CORPUSCULAR HEMOGLOBIN 29.3 pg (27.0-34.0); MEAN CORPUSCULAR HGB CONC 34.1 g/dL (33.0-35.0); MEAN PLATELET VOLUME 8.2 fL (7.4-11.0); MONOCYTES # (AUTO) 0.6 x10^3/uL (0.3-0.8); MONOCYTES % (AUTO) 7.4 % (0.0-13.0); NEUTROPHILS # (AUTO) 6.2 x10^3/uL (2.2-4.8); NEUTROPHILS % (AUTO) 80.1 % (42.0-75.0); PLATELET COUNT 199 X10^3/uL (150.0-450.0); RED BLOOD COUNT 3.73 X10^6/uL (3.5-5.4); RED CELL DISTRIBUTION WIDTH 14.1 % (11.6-16.5); WHITE BLOOD COUNT 7.7 X10^3/uL (3.6-10.0)
[2023-01-24 06:45] LABS: ALANINE AMINOTRANSFERASE 16 Units/L (12-78); ALBUMIN 1.7 g/dL (3.4-5.0); ALKALINE PHOSPHATASE 75 Units/L (46-116); ASPARTATE AMINO TRANSFERASE 14 Units/L (15-37); BLOOD UREA NITROGEN 11 mg/dL (7-18); CALCIUM 7.9 mg/dL (8.5-10.1); CARBON DIOXIDE 25.5 mmol/L (21-32); CHLORIDE 107 mmol/L (98-107); COR CA(FOR HYPOALB) 9.7 mg/dL (8.5-10.1); COR NA(FOR HYPERGLY) 139 mmol/L (136-145); CREATININE 0.76 mg/dL (0.55-1.02); GLUCOSE 132 mg/dL (65-99); POTASSIUM 4.1 mmol/L (3.5-5.1); SODIUM 138 mmol/L (136-145); TOTAL PROTEIN 5.1 g/dL (6.4-8.2); eGFR NON BLACK RACES > 60 (>60)
--- NOTE | 2023-01-24 08:46 | DR.PROGNOT ---
HOSPITAL PROGRESS NOTE Progress Note for Day of: Progress Note Date: 01/24/23 Chief Complaint Chief Complaint: PO Rt colectomy for perforated Cecum .day 2 . doing very well , OOB . minimal drainage in SHAMAR and NGT .. normal CBC and lytes . temp 98.7 Past Medical Family Social History Allergies: Allergies clarithromycin [Biaxin] Allergy (Unknown, Verified 01/20/23 19:10) Reason: Drug allergy; Comments: Swelling of tongue codeine Allergy (Unknown, Verified 01/20/23 19:42) Hives; Itching; Rash Reason: Drug allergy Review Of Systems ROS: No change since H&P Vital Signs Vital Signs: Vital Signs Temperature 98.2 F Temperature 97.8 F Pulse Rate [Left Radial] 81 Pulse Rate [Left Radial] 84 Respiratory Rate 20 Respiratory Rate 17 Respiratory Rate 20 Respiratory Rate 21 Blood Pressure [Left Arm] 143/71 Blood Pressure [Left Arm] 151/70 O2 Sat by Pulse Oximetry 96 O2 Sat by Pulse Oximetry 98 Physical Exam Oriented: Normal Eyes: Normal Ear: Normal Nose: Normal Respiratory: Normal Cardiovascular: Normal GI:Auscultation: Decreased GI:Palpation: Normal GI: Tenderness: Other (soft, flat abd with incisional tenderness .. ) Mood Description: Calm Speech Pattern: Clear and Appropriate Laboratory and Diagnostics 01/24/23 05:40 01/24/23 05:40 Labs: 01/22/23 11:39 Peritoneal Fluid Wound Gram Stain - Final 01/22/23 11:39 Peritoneal Fluid Wound Culture - Preliminary 01/21/23 19:41 Blood Blood Culture - Preliminary 01/21/23 19:33 Blood Blood Culture - Preliminary Laboratory WBC 7.7 X10^3/uL (3.6-10.0) 01/24/23 05:40 RBC 3.73 X10^6/uL (3.5-5.4) 01/24/23 05:40 Hgb 10.9 g/dL (12.0-16.0) L 01/24/23 05:40 Hct 32.0 % (36.0-47.0) L 01/24/23 05:40 MCV 86.0 fL (80.0-100.0) 01/24/23 05:40 MCH 29.3 pg (27.0-34.0) 01/24/23 05:40 MCHC 34.1 g/dL (33.0-35.0) 01/24/23 05:40 RDW 14.1 % (11.6-16.5) 01/24/23 05:40 Plt Count 199 X10^3/uL (150.0-450.0) 01/24/23 05:40 Plt Count Comment Adequate (ADEQUATE) 01/20/23 21:56 MPV 8.2 fL (7.4-11.0) 01/24/23 05:40 Neut % (Auto) 80.1 % (42.0-75.0) H 01/24/23 05:40 Lymph % (Auto) 11.8 % (21.0-51.0) L 01/24/23 05:40 [place] % (Auto) 7.4 % (0.0-13.0) 01/24/23 05:40 Eos % (Auto) 0.6 % (0.9-2.9) L 01/24/23 05:40 Baso % (Auto) 0.1 % (0.2-1.0) L 01/24/23 05:40 Neut # (Auto) 6.2 x10^3/uL (2.2-4.8) H 01/24/23 05:40 Lymph # (Auto) 0.9 X10^3/uL (1.3-2.9) L 01/24/23 05:40 [place] # (Auto) 0.6 x10^3/uL (0.3-0.8) 01/24/23 05:40 Eos # (Auto) 0.0 x10^3/uL (0.0-0.2) 01/24/23 05:40 Baso # (Auto) 0.0 X10^3/uL (0.0-0.1) 01/24/23 05:40 Absolute Nucleated RBC 0.0 /100WBC 01/24/23 05:40 Plt Morphology Comment Normal (NORMAL) 01/20/23 21:56 RBC Morphology Normal (NORMAL) 01/20/23 21:56 Sodium 138 mmol/L (136-145) 01/24/23 05:40 Corrected Sodium 139 mmol/L (136-145) 01/24/23 05:40 Potassium 4.1 mmol/L (3.5-5.1) 01/24/23 05:40 Chloride 107 mmol/L (98-107) 01/24/23 05:40 Carbon Dioxide 25.5 mmol/L (21-32) 01/24/23 05:40 BUN 11 mg/dL (7-18) 01/24/23 05:40 Creatinine 0.76 mg/dL (0.55-1.02) 01/24/23 05:40 Est GFR (MDRD) Af Amer > 60 (>60) 01/24/23 05:40 Est GFR (MDRD) Non-Af > 60 (>60) 01/24/23 05:40 Glucose 132 mg/dL (65-99) H 01/24/23 05:40 Calcium 7.9 mg/dL (8.5-10.1) L 01/24/23 05:40 Corrected Calcium 9.7 mg/dL (8.5-10.1) 01/24/23 05:40 Magnesium 2.2 mg/dL (2.0-2.9) 01/22/23 05:11 Total Bilirubin 0.40 mg/dL (0.2-1.0) 01/24/23 05:40 AST 14 Units/L (15-37) L 01/24/23 05:40 ALT 16 Units/L (12-78) 01/24/23 05:40 Alkaline Phosphatase 75 Units/L (46-116) 01/24/23 05:40 Total Protein 5.1 g/dL (6.4-8.2) L 01/24/23 05:40 Albumin 1.7 g/dL (3.4-5.0) L 01/24/23 05:40 Globulin 3.4 g/dL (2.5-4.5) 01/24/23 05:40 Albumin/Globulin Ratio 0.5 Ratio (1.1-2.1) L 01/24/23 05:40 Amylase 37 Units/L (25-115) 01/20/23 21:56 Lipase 76 Units/L (73-393) 01/20/23 21:56 Specimen Type Catherized urine 01/21/23 14:45 Urine Color Yellow (YELLOW) 01/21/23 14:45 Urine Appearance Clear (CLEAR) 01/21/23 14:45 Urine pH 5.0 (5.0 - 8.0) 01/21/23 14:45 Ur Specific [place] 1.025 (1.000-1.030) 01/21/23 14:45 Urine Protein 2+ (NEGATIVE) 01/21/23 14:45 Urine Glucose (UA) Negative (NEGATIVE) 01/21/23 14:45 Urine Ketones Negative (NEGATIVE) 01/21/23 14:45 Urine Blood 2+ (NEGATIVE) 01/21/23 14:45 Urine Nitrite Negative (NEGATIVE) 01/21/23 14:45 Urine Bilirubin Negative (NEGATIVE) 01/21/23 14:45 Urine Urobilinogen Normal (NORMAL) 01/21/23 14:45 Ur Leukocyte Esterase Negative (NEGATIVE) 01/21/23 14:45 Urine RBC 0-2 /HPF (0-3) 01/21/23 14:45 Urine WBC 3-5 /HPF (0-5) 01/21/23 14:45 Ur Squamous Epith Cells Rare /HPF (NEGATIVE) 01/21/23 14:45 Amorphous Sediment Trace /HPF (NEGATIVE) 01/21/23 14:45 Urine Bacteria 1+ /HPF (NEGATIVE) 01/21/23 14:45 Urine Mucus Few /HPF (NEGATIVE) 01/21/23 14:45 Ur Culture Indicated? No/not indicated 01/21/23 14:45 Assessment and Plan 1: post op RT colectomy for perforated cecum ( recent colonoscopy laser cau terization of AV malformation AC ) same PO care .. To DC NG tube and Valentin catheter. On clear liquid. Problem Patient Problems: Patient Problems Perforated bowel (Acute) K63.1
[2023-01-24] MEDS: PROTONIX INJ 40 MG VIAL IVP SCH ×2 (09:22→20:06)
[2023-01-24] MEDS: LOVENOX INJ 40 MG SYR SC SCH (09:22)
[2023-01-24] MEDS: LEVAQUIN PREMIX IV 500 MG 500 MG/100 ML BAG IV SCH (09:23)
[2023-01-25] MEDS: D5 1/2 NS + KCL 20 MEQ/L 1,000 ML IV SCH ×3 (00:04→18:30)
[2023-01-25] MEDS: ZOSYN VIAL 3.375 GRAMS 3.375 G in NS 100 ML IV 100 ML IV SCH ×3 (05:03→21:20)
[2023-01-25] MEDS: PROTONIX INJ 40 MG VIAL IVP SCH ×2 (08:36→21:20)
[2023-01-25] MEDS: LOVENOX INJ 40 MG SYR SC SCH (08:36)
[2023-01-25] MEDS: LEVAQUIN PREMIX IV 500 MG 500 MG/100 ML BAG IV SCH (08:36)
[2023-01-25] MEDS: DILAUDID INJ IVP PRN ×2 (08:48→22:07)
--- NOTE | 2023-01-25 10:31 | DR.PROGNOT ---
HOSPITAL PROGRESS NOTE Progress Note for Day of: Progress Note Date: 01/25/23 Chief Complaint Chief Complaint: PO Rt colectomy for perforated Cecum .day 3 . doing very well , OOB . Tolerating a clear liquid, passing flatus. CBC and electrolytes are normal. SHAMAR was removed. To advance diet and may be discharged in a.m. Past Medical Family Social History Past Med/Fam/Surg Hx: No changes since H&P Allergies: Allergies clarithromycin [Biaxin] Allergy (Unknown, Verified 01/20/23 19:10) Reason: Drug allergy; Comments: Swelling of tongue codeine Allergy (Unknown, Verified 01/20/23 19:42) Hives; Itching; Rash Reason: Drug allergy Review Of Systems ROS: No change since H&P Vital Signs Vital Signs: Vital Signs Temperature 98.3 F Temperature 98.3 F Pulse Rate [Left Radial] 82 Pulse Rate [Left Radial] 87 Respiratory Rate 20 Respiratory Rate 20 Respiratory Rate 20 Blood Pressure [Left Arm] 139/71 Blood Pressure [Left Arm] 136/64 O2 Sat by Pulse Oximetry 94 O2 Sat by Pulse Oximetry 95 Physical Exam Oriented: Normal Eyes: Normal Ear: Normal Nose: Normal Respiratory: Normal Cardiovascular: Normal GI:Auscultation: Decreased GI:Palpation: Normal GI: Tenderness: Other (soft, flat abd with incisional tenderness .. ) Mood Description: Calm Speech Pattern: Clear and Appropriate Laboratory and Diagnostics 01/24/23 05:40 01/24/23 05:40 Labs: 01/22/23 11:39 Peritoneal Fluid Wound Gram Stain - Final 01/22/23 11:39 Peritoneal Fluid Wound Culture - Preliminary Escherichia Coli 01/21/23 19:41 Blood Blood Culture - Preliminary 01/21/23 19:33 Blood Blood Culture - Preliminary Laboratory WBC 7.7 X10^3/uL (3.6-10.0) 01/24/23 05:40 RBC 3.73 X10^6/uL (3.5-5.4) 01/24/23 05:40 Hgb 10.9 g/dL (12.0-16.0) L 01/24/23 05:40 Hct 32.0 % (36.0-47.0) L 01/24/23 05:40 MCV 86.0 fL (80.0-100.0) 01/24/23 05:40 MCH 29.3 pg (27.0-34.0) 01/24/23 05:40 MCHC 34.1 g/dL (33.0-35.0) 01/24/23 05:40 RDW 14.1 % (11.6-16.5) 01/24/23 05:40 Plt Count 199 X10^3/uL (150.0-450.0) 01/24/23 05:40 Plt Count Comment Adequate (ADEQUATE) 01/20/23 21:56 MPV 8.2 fL (7.4-11.0) 01/24/23 05:40 Neut % (Auto) 80.1 % (42.0-75.0) H 01/24/23 05:40 Lymph % (Auto) 11.8 % (21.0-51.0) L 01/24/23 05:40 [place] % (Auto) 7.4 % (0.0-13.0) 01/24/23 05:40 Eos % (Auto) 0.6 % (0.9-2.9) L 01/24/23 05:40 Baso % (Auto) 0.1 % (0.2-1.0) L 01/24/23 05:40 Neut # (Auto) 6.2 x10^3/uL (2.2-4.8) H 01/24/23 05:40 Lymph # (Auto) 0.9 X10^3/uL (1.3-2.9) L 01/24/23 05:40 [place] # (Auto) 0.6 x10^3/uL (0.3-0.8) 01/24/23 05:40 Eos # (Auto) 0.0 x10^3/uL (0.0-0.2) 01/24/23 05:40 Baso # (Auto) 0.0 X10^3/uL (0.0-0.1) 01/24/23 05:40 Absolute Nucleated RBC 0.0 /100WBC 01/24/23 05:40 Plt Morphology Comment Normal (NORMAL) 01/20/23 21:56 RBC Morphology Normal (NORMAL) 01/20/23 21:56 Sodium 138 mmol/L (136-145) 01/24/23 05:40 Corrected Sodium 139 mmol/L (136-145) 01/24/23 05:40 Potassium 4.1 mmol/L (3.5-5.1) 01/24/23 05:40 Chloride 107 mmol/L (98-107) 01/24/23 05:40 Carbon Dioxide 25.5 mmol/L (21-32) 01/24/23 05:40 BUN 11 mg/dL (7-18) 01/24/23 05:40 Creatinine 0.76 mg/dL (0.55-1.02) 01/24/23 05:40 Est GFR (MDRD) Af Amer > 60 (>60) 01/24/23 05:40 Est GFR (MDRD) Non-Af > 60 (>60) 01/24/23 05:40 Glucose 132 mg/dL (65-99) H 01/24/23 05:40 Calcium 7.9 mg/dL (8.5-10.1) L 01/24/23 05:40 Corrected Calcium 9.7 mg/dL (8.5-10.1) 01/24/23 05:40 Magnesium 2.2 mg/dL (2.0-2.9) 01/22/23 05:11 Total Bilirubin 0.40 mg/dL (0.2-1.0) 01/24/23 05:40 AST 14 Units/L (15-37) L 01/24/23 05:40 ALT 16 Units/L (12-78) 01/24/23 05:40 Alkaline Phosphatase 75 Units/L (46-116) 01/24/23 05:40 Total Protein 5.1 g/dL (6.4-8.2) L 01/24/23 05:40 Albumin 1.7 g/dL (3.4-5.0) L 01/24/23 05:40 Globulin 3.4 g/dL (2.5-4.5) 01/24/23 05:40 Albumin/Globulin Ratio 0.5 Ratio (1.1-2.1) L 01/24/23 05:40 Amylase 37 Units/L (25-115) 01/20/23 21:56 Lipase 76 Units/L (73-393) 01/20/23 21:56 Specimen Type Catherized urine 01/21/23 14:45 Urine Color Yellow (YELLOW) 01/21/23 14:45 Urine Appearance Clear (CLEAR) 01/21/23 14:45 Urine pH 5.0 (5.0 - 8.0) 01/21/23 14:45 Ur Specific [place] 1.025 (1.000-1.030) 01/21/23 14:45 Urine Protein 2+ (NEGATIVE) 01/21/23 14:45 Urine Glucose (UA) Negative (NEGATIVE) 01/21/23 14:45 Urine Ketones Negative (NEGATIVE) 01/21/23 14:45 Urine Blood 2+ (NEGATIVE) 01/21/23 14:45 Urine Nitrite Negative (NEGATIVE) 01/21/23 14:45 Urine Bilirubin Negative (NEGATIVE) 01/21/23 14:45 Urine Urobilinogen Normal (NORMAL) 01/21/23 14:45 Ur Leukocyte Esterase Negative (NEGATIVE) 01/21/23 14:45 Urine RBC 0-2 /HPF (0-3) 01/21/23 14:45 Urine WBC 3-5 /HPF (0-5) 01/21/23 14:45 Ur Squamous Epith Cells Rare /HPF (NEGATIVE) 01/21/23 14:45 Amorphous Sediment Trace /HPF (NEGATIVE) 01/21/23 14:45 Urine Bacteria 1+ /HPF (NEGATIVE) 01/21/23 14:45 Urine Mucus Few /HPF (NEGATIVE) 01/21/23 14:45 Ur Culture Indicated? 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 full liquid diet. Reduce IV to KVO. Problem Patient Problems: Patient Problems Perforated bowel (Acute) K63.1
[2023-01-26] MEDS: ZOSYN VIAL 3.375 GRAMS 3.375 G in NS 100 ML IV 100 ML IV SCH (05:33)
[2023-01-26] MEDS: D5 1/2 NS + KCL 20 MEQ/L 1,000 ML IV SCH (05:57)
[2023-01-26 07:12] LABS: BASOPHILS % (AUTO) 0.5 % (0.2-1.0); EOSINOPHILS # (AUTO) 0.2 x10^3/uL (0.0-0.2); EOSINOPHILS % (AUTO) 2.3 % (0.9-2.9); HEMATOCRIT 36.1 % (36.0-47.0); HEMOGLOBIN 12.3 g/dL (12.0-16.0); LYMPHOCYTES # (AUTO) 1.6 X10^3/uL (1.3-2.9); LYMPHOCYTES % (AUTO) 20.3 % (21.0-51.0); MEAN CORPUSCULAR HEMOGLOBIN 29.3 pg (27.0-34.0); MEAN CORPUSCULAR HGB CONC 34.1 g/dL (33.0-35.0); MEAN PLATELET VOLUME 7.4 fL (7.4-11.0); MONOCYTES # (AUTO) 0.8 x10^3/uL (0.3-0.8); MONOCYTES % (AUTO) 10.1 % (0.0-13.0); NEUTROPHILS # (AUTO) 5.3 x10^3/uL (2.2-4.8); NEUTROPHILS % (AUTO) 66.8 % (42.0-75.0); PLATELET COUNT 251 X10^3/uL (150.0-450.0); WHITE BLOOD COUNT 7.9 X10^3/uL (3.6-10.0)
[2023-01-26 07:26] LABS: ALANINE AMINOTRANSFERASE 30 Units/L (12-78); ALBUMIN 1.9 g/dL (3.4-5.0); ALKALINE PHOSPHATASE 90 Units/L (46-116); ASPARTATE AMINO TRANSFERASE 18 Units/L (15-37); BLOOD UREA NITROGEN 6 mg/dL (7-18); CALCIUM 8.3 mg/dL (8.5-10.1); CARBON DIOXIDE 28.6 mmol/L (21-32); CHLORIDE 104 mmol/L (98-107); CREATININE 0.77 mg/dL (0.55-1.02); GLUCOSE 103 mg/dL (65-99); MAGNESIUM 1.9 mg/dL (2.0-2.9); POTASSIUM 3.7 mmol/L (3.5-5.1); SODIUM 139 mmol/L (136-145); TOTAL PROTEIN 5.5 g/dL (6.4-8.2); eGFR NON BLACK RACES > 60 (>60)
[2023-01-26] MEDS: LEVAQUIN PREMIX IV 500 MG 500 MG/100 ML BAG IV SCH (08:32)
[2023-01-26] MEDS: PROTONIX INJ 40 MG VIAL IVP SCH (08:32)
[2023-01-26] MEDS: LOVENOX INJ 40 MG SYR SC SCH (08:33)
[2023-01-26 09:06] VITALS: BP 177/82; PULSE 84; RESP 18; TEMP 98.6; O2SAT 95
== END 2023-01-26 11:10 | disposition home or self-care (01) | DRG 329 ==
LOC: ER 16:27 → MED/SURG 23:32
PROVIDERS: ADMIT Surgery; ATTEND Surgery
DX: K63.1 Perforation of intestine (nontraumatic); Z98.890 Other specified postprocedural states; E83.42 Hypomagnesemia; K91.89 Other postprocedural complications and disorders of digestive system; R10.84 Generalized abdominal pain; K66.0 Peritoneal adhesions (postprocedural) (postinfection); I10 Essential (primary) hypertension; B96.29 Other Escherichia coli [E. coli] as the cause of diseases classified elsewhere; K65.0 Generalized (acute) peritonitis; R26.89 Other abnormalities of gait and mobility